=== PATIENT | female | born 1950 | race Caucasian/White ===

== ENCOUNTER → 2018-06-04 14:15 | Outpatient (CLI) | payer MEDICARE, OTHER ==
[2016-05-20 15:06] VITALS: BMI 24.1
[~2018-06-04 14:15] MED LIST: BAYER CHEWABLE81 MG PO; HYZAAR 50-12.51 TAB PO; LEVOTHYROXINE75 MCG PO; LIPITOR80 MG PO; TOPROL XL50 MG PO
== END | disposition home or self-care (01) ==
LOC: D.MAMMO 14:15
DX: Z12.31 Encounter for screening mammogram for malignant neoplasm of breast (principal)

== ENCOUNTER → 2019-12-02 08:00 | Outpatient (CLI) | payer MEDICARE, OTHER ==
[2016-05-20 15:06] VITALS: BMI 24.1
== END | disposition home or self-care (01) ==
LOC: D.MAMMO 08:00
PROVIDERS: ATTEND Emergency Medicine
DX: R59.0 Localized enlarged lymph nodes (principal)

== ENCOUNTER → 2019-12-15 13:32 | Outpatient (CLI) | payer MEDICARE, OTHER ==
[2016-05-20 15:06] VITALS: BMI 24.1
== END | disposition home or self-care (01) ==
LOC: D.LABREF 13:32
PROVIDERS: ATTEND Surgery
DX: R59.0 Localized enlarged lymph nodes (principal)

== ENCOUNTER 2021-01-30 13:22 | Outpatient (CLI) | payer MEDICARE, OTHER ==
[~2021-01-30] VITALS: Ht 170.2 cm; Wt 65.5 kg
[2021-01-30 13:50] VITALS: Ht 170.2 cm; Wt 65.5 kg
== END 2021-01-30 14:05 | disposition home or self-care (01) ==
LOC: D.OPS 13:22
PROVIDERS: ATTEND Emergency Medicine
DX: M81.0 Age-related osteoporosis without current pathological fracture (principal)